=== PATIENT | female | born 1970 | race African-American/Black ===

== ENCOUNTER 2020-01-29 09:04 | Emergency (ER) | payer SELFPAY ==
[~2020-01-29] VITALS: Ht 167.6 cm; Wt 90.0 kg
[2020-01-29 09:14] VITALS: BP 120/61
--- NOTE | 2020-01-29 10:08 | RAD ---
KNEE LEFT 3V History: Reason: swelling,pt states bump on lateral aspect of knee, denies injury / Spl. Instructions: / History: Technique: 3 views left knee. Comparison: None. Findings: Normal alignment. No fracture. No significant knee joint effusion. Mild medial and patellofemoral compartment degenerative changes with spurring and joint space narrowing. Impression: 1. No acute osseous abnormality. 2. Mild left knee DJD. Electronically signed by: Chance Huff DO (01/29/2020 10:06 AM) [id number]
[2020-01-29] MEDS ORDERED: MELO7.5T29 PO (10:33)
--- NOTE | 2020-01-29 10:33 | ED.ADGEN ---
Past Medical History Past Medical History: Anxiety, Hypertension Past Surgical History: Hysterectomy, Other Additional Past Surgical Histo: benign tumor in abdomen; hernia Smoking Status: Never Smoker Alcohol Use: None Adult General Chief Complaint Chief Complaint: KNEE SWELLING HPI HPI Patient is a 49 year old left knee pain and swelling worse over the past week. Is recently started exercising at home with an exercise machine. The pain is been increasing and is been taking Tylenol with some improvement. Denies any injury or fall. Says it felt a little bit warm the other day when it was hurting but has not noted any redness. Pain worse with walking Review of Systems Review of Systems Constitutional: Denies fever or chills. [] Eyes: Denies change in visual acuity. [] HENT: Denies nasal congestion or sore throat. [] Respiratory: Denies cough or shortness of breath. [] Cardiovascular: Denies chest pain or edema. [] GI: Denies abdominal pain, nausea, vomiting, bloody stools or diarrhea. [] : Denies dysuria. [] Musculoskeletal: Left knee pain and swelling [] Integument: Denies rash. [] Neurologic: Denies headache, focal weakness or sensory changes. [] Endocrine: Denies polyuria or polydipsia. [] Lymphatic: Denies swollen glands. [] Psychiatric: Denies depression or anxiety. [] Allergies Allergies Allergies Coded Allergies Type Severity Reaction Last Updated Verified No Known Drug Allergies 01/29/20 No Physical Exam Physical Exam Constitutional: Well developed, well nourished, no acute distress, non-toxic appearance. [] HENT: Normocephalic, atraumatic, bilateral external ears normal, oropharynx moist, no oral exudates, nose normal. [] Eyes: PERRLA, EOMI, conjunctiva normal, no discharge. [] Neck: Normal range of motion, no tenderness, supple, no stridor. [] Cardiovascular:Heart rate regular rhythm, no murmur [] Lungs & Thorax: Bilateral breath sounds clear to auscultation [] Abdomen: Bowel sounds normal, soft, no tenderness, no masses, no pulsatile masses. [] Skin: Warm, dry, no erythema, no rash. [] Back: No tenderness, no CVA tenderness. [] Extremities: No tenderness, no cyanosis, no clubbing, ROM intact, no edema. Right knee mild joint effusion, no erythema or warmth. Ligament exam intact [] Neurologic: Alert and oriented X 3, normal motor function, normal sensory function, no focal deficits noted. [] Psychologic: Affect normal, judgement normal, mood normal. [] Current Patient Data Vital Signs Vital Signs Date Time Temp Pulse Resp B/P (MAP) Pulse Ox O2 Delivery O2 Flow Rate FiO2 01/29/20 09:14 98.1 73 16 120/61 (80) 97 Room Air 98.1 EKG EKG [] Radiology/Procedures Radiology/Procedures History: Reason: swelling,pt states bump on lateral aspect of knee, denies injury / Spl. Instructions: / History: Technique: 3 views left knee. Comparison: None. Findings: Normal alignment. No fracture. No significant knee joint effusion. Mild medial and patellofemoral compartment degenerative changes with spurring and joint space narrowing. Impression: 1. No acute osseous abnormality. 2. Mild left knee DJD. [] Course & Med Decision Making Course & Med Decision Making Pertinent Labs and Imaging studies reviewed. (See chart for details) Patient not having difficulty with ambulating, mild confusion likely secondary to arthritis and stress, no signs of severe swelling or indication for aspiration of the joint. Given instructions to follow-up with Ortho [] Dragon Disclaimer Dragon Disclaimer This electronic medical record was generated, in whole or in part, using a voice recognition dictation system. Departure Departure Impression: Primary Impression: Left knee DJD Disposition: 01 HOME, SELF-CARE Condition: STABLE Referrals: NO PCP (PCP) [facility] Surgery Patient Instructions: RICE - Routine Care for Injuries Scripts Meloxicam (MELOXICAM) 7.5 Mg Tablet 7.5 MG PO DAILY for 10 Days, #10 TAB Prov: KATEY CHINCHILLA MD 01/29/20 KATEY CHINCHILLA MD Jan 29, 2020 10:33
== END 2020-01-29 10:57 | disposition home or self-care (01) ==
LOC: ER 09:04
DX: M17.12 Unilateral primary osteoarthritis, left knee (principal); I10 Essential (primary) hypertension; Z90.710 Acquired absence of both cervix and uterus
CPT/HCPCS: 73562; 99283